=== PATIENT | female | born 1960 | race Two or more races ===

== ENCOUNTER 2021-10-14 11:59 | Inpatient (IN) | payer BC, MEDICAID ==
[~2021-10-14] VITALS: Ht 157.5 cm; Wt 65.8 kg
[~2021-10-14 11:59] MED LIST: IBUP600T27 PO; METF-489 PO
[2021-10-14] MEDS ORDERED: SODIUM CHLORIDE 0.9% 1,000 ML IV ONE (12:30)
[2021-10-14] MEDS ORDERED: InsuLIN REG 1unit/0.01ml Soln (100units/ml) IV ONE (12:30)
[2021-10-14 14:25] LABS: Basophils # (auto) 0.1 10 ^3/uL (0-0.2); Eosinophils # (auto) 0.1 10 ^3/uL (0-0.8); Eosinophils % (auto) 3.1 % (0.0-7.0); Hematocrit 43.3 % (36.0-46.0); Hemoglobin 14.7 g/dL (12.2-16.2); Lymphocytes # (auto) 0.8 10 ^3/uL (0.4-5.4); Mean Corpuscular Hemoglobin 31.8 pg (28.0-32.0); Mean Corpuscular Hgb Conc. 33.9 g/dL (32.0-36.0); Mean Corpuscular Volume 93.7 fL (80.0-100.0); Monocytes # (auto) 0.2 10 ^3/uL (0-1.3); Neutrophils # (auto) 3.3 10 ^3/uL (1.6-8.6); Neutrophils % (auto) 71.9 % (37.0-80.0); Nucleated Red Blood Cells % 0.1 %; Red Blood Cells 4.62 10^6/uL (4.0-5.20); Red Cell Distribution Width 13.3 % (11.8-14.3); White Blood Cell 4.6 10^3/uL (4.4-10.8)
[2021-10-14 14:41] LABS: Albumin 3.9 g/dL (3.4-5.0); Calcium 10.1 mg/dL (8.5-10.1); Potassium 4.7 mmol/L (3.5-5.1)
[2021-10-14 14:46] LABS: BUN/Creatinine Ratio 31.3; Bilirubin, Total 0.4 mg/dL (0.2-1.0); Total Protein 7.8 g/dL (6.4-8.2)
[2021-10-14 14:57] LABS: Urine Bacteria NONE SEEN /hpf (None Seen); Urine Blood Negative /uL (Negative); Urine Specific Gravity 1.031 (1.001-1.035); Urine WBC 1 /hpf (0 - 5)
[2021-10-14] MEDS ORDERED: NITROGLYCERIN 0.4 MG SL TAB SL PRN ×2 (16:00→17:45)
[2021-10-14] MEDS ORDERED: DEXTROSE (50%) 50ML SYRG IV PRN (16:00)
[2021-10-14] MEDS ORDERED: SODIUM CHLORIDE 0.9% 3,000 ML IV ONE (16:00)
[2021-10-14] MEDS ORDERED: InsuLIN R (HUMAN) 100 UNITS in SODIUM CHL 0.9% 99 ML IV SCH (16:00)
[2021-10-14] MEDS ORDERED: MORPHINE SULFATE INJECTION 2 MG/ML SYRG IV PRN ×3 (16:00→17:45)
[2021-10-14] MEDS ORDERED: INSULIN LANTUS (GLARGINE) 1 /0.01ml (100units/ml) SC ONE (16:00)
[2021-10-14] MEDS: ACCU-CHEK COMFORT CURVE STRIP VI SCH ×5 (16:35→22:33)
[2021-10-14 17:06] LABS: Calcium 9.5 mg/dL (8.5-10.1); Magnesium 2.5 mg/dL (1.6-2.6); Potassium 4.1 mmol/L (3.5-5.1)
[2021-10-14 17:09] LABS: BUN/Creatinine Ratio 34.3; Phosphorus 3.7 mg/dL (2.5-4.90)
[2021-10-14] MEDS ORDERED: ONDANSETRON HCL 4 MG/2 ML VIAL ONE (17:15)
[2021-10-14] MEDS ORDERED: PANTOPRAZOLE 40 MG/10 ML VIAL INJ IV ONE (17:30)
[2021-10-14] MEDS ORDERED: SOD CHL 0.9%/ KCL 20MEQ 1,000 ML IV PRN (17:30)
[2021-10-14] MEDS ORDERED: cefTRIAXone 1GM/50ML D5W 50 ML IV ONE (17:30)
[2021-10-14] MEDS ORDERED: D5W/SOD CHLO 0.9% 1,000 ML IV PRN (17:30)
[2021-10-14] MEDS ORDERED: HYDROcodone-ACET 5/325MG TAB PO PRN (17:45)
[2021-10-14] MEDS ORDERED: ACETAMINOPHEN 325 MG TAB PO PRN (17:45)
[2021-10-14] MEDS ORDERED: ALBUTEROL SULF 2.5 MG/0.5ML(0.5%) NEB SOLN NEB PRN (17:45)
[2021-10-14] MEDS ORDERED: BUDESONIDE (INHALATION) 0.5 MG/2 ML NEB NEB ONE (17:45)
[2021-10-14] MEDS ORDERED: DOCUSATE SOD 100 MG CAP PO PRN (17:45)
[2021-10-14] MEDS ORDERED: METOCLOPRAMIDE HCL 5MG/ml INJ 2ml VIAL IV PRN (17:45)
[2021-10-14] MEDS ORDERED: LORazepam 0.5 MG TAB PO PRN (17:45)
[2021-10-14] MEDS ORDERED: ALUM & MAG HYDROX-SIMETH LIQ(MAALOX) 30 ML PO PRN (17:45)
[2021-10-14] MEDS ORDERED: IPRATROPIUM BROM 0.5 MG/2.5ML INH SOL NEB SCH (18:00)
[2021-10-14 18:06] LABS: Cholesterol 193 mg/dL (< 200)
[2021-10-14 18:09] LABS: HDL Cholesterol 31 mg/dL (40-59); Triglycerides 534 mg/dL (< 150)
[2021-10-14 18:11] LABS: Amphetamine Screen, Urine NEGATIVE (NEGATIVE); Barbiturate Scree,Urine NEGATIVE (NEGATIVE); Benzodiazephine Screen, Urine NEGATIVE (NEGATIVE); Cannabinoid Screen, Urine NEGATIVE (NEGATIVE); Cocaine Screen, Urine NEGATIVE (NEGATIVE); Opiate Scree,Urine NEGATIVE (NEGATIVE); Phencyclidine Screen, Urine NEGATIVE (NEGATIVE)
[2021-10-14] MEDS: SODIUM CHLORIDE 0.9% 1,000 ML IV SCH ×2 (18:35→22:33)
[2021-10-14] MEDS ORDERED: ATORVASTATIN 20 MG TAB PO SCH (22:00)
[2021-10-14] MEDS ORDERED: MONTELUKAST SODIUM 10 MG TAB PO SCH (22:00)
[2021-10-15] MEDS: ACCU-CHEK COMFORT CURVE STRIP VI SCH ×12 (00:06→16:33)
[2021-10-15] MEDS: SODIUM CHLORIDE 0.9% 1,000 ML IV SCH ×3 (03:31→13:30)
[2021-10-15] MEDS ORDERED: LEVOTHYROXINE SODIUM 25 MCG TAB PO SCH (07:00)
[2021-10-15] MEDS ORDERED: cefTRIAXone 1GM/50ML D5W 50 ML IV SCH (09:00)
[2021-10-15] MEDS ORDERED: BUDESONIDE (INHALATION) 0.5 MG/2 ML NEB NEB SCH (10:00)
[2021-10-15] MEDS ORDERED: ENOXAPARIN SOD 40 MG/0.4 ML SYRINGE SC SCH (10:00)
[2021-10-15] MEDS ORDERED: INSULIN LANTUS (GLARGINE) 1 /0.01ml (100units/ml) SC SCH (10:00)
[2021-10-15] MEDS ORDERED: ASPirin 81 mg TAB PO SCH (10:00)
[2021-10-15] MEDS ORDERED: BENAZEPRIL HCL 10 MG TAB PO SCH (10:00)
[2021-10-15] MEDS ORDERED: METF-372 PO (16:10)
[2021-10-15] MEDS ORDERED: ATOR20TA50 PO (16:10)
[2021-10-15] MEDS ORDERED: LOS25T PO (16:10)
[2021-10-15] MEDS ORDERED: ASPI1CHW15 PO ×2 (16:12)
[2021-10-15] MEDS ORDERED: LEV50T PO (16:14)
[2021-10-15] MEDS ORDERED: DEXTROSE (50%) 50ML SYRG IV PRN (16:15)
[2021-10-15] MEDS ORDERED: ALCO1PAD13 XX (16:21)
[2021-10-15] MEDS ORDERED: LANCMIS XX (16:21)
[2021-10-15] MEDS ORDERED: INSREGI SC (16:21)
[2021-10-15] MEDS ORDERED: BLOOKIT79 XX (16:21)
[2021-10-15] MEDS ORDERED: INSU-829 XX (16:21)
[2021-10-15 16:41] VITALS: BP 104/53
[2021-10-15] MEDS ORDERED: ACCU-CHEK COMFORT CURVE STRIP VI SCH (18:00)
[2021-10-15] MEDS ORDERED: InsuLIN REG 1unit/0.01ml Soln (100units/ml) SC SCH (18:00)
[2021-10-15] MEDS ORDERED: PANTOPRAZOLE 40 MG/10 ML VIAL INJ IV SCH (22:00)
== END 2021-10-15 17:34 | disposition home or self-care (01) | DRG 638 ==
LOC: ER 11:59 → EEVIPCON 15:53 → TELE 15:53
PROVIDERS: ADMIT Hospitalist; ATTEND Internal Medicine
DX: E11.65 Type 2 diabetes mellitus with hyperglycemia (principal); N39.0 Urinary tract infection, site not specified; E03.9 Hypothyroidism, unspecified; E78.5 Hyperlipidemia, unspecified; E66.01 Morbid (severe) obesity due to excess calories; I10 Essential (primary) hypertension; J45.40 Moderate persistent asthma, uncomplicated; Z68.26 Body mass index [BMI] 26.0-26.9, adult; Z79.84 Long term (current) use of oral hypoglycemic drugs; Z81.8 Family history of other mental and behavioral disorders; Z86.73 Personal history of transient ischemic attack (TIA), and cerebral infarction without residual deficits; Z91.14 Patient's other noncompliance with medication regimen; Z91.19 Patient's noncompliance with other medical treatment and regimen
CPT/HCPCS: 36415; 71045; 80048; 80053; 80061; 80307; 81001; 82010; 82962; 83036; 83735; 83930; 84100; 84484; 85025; 87040; 87086; 87426; 93005; 96361; 96374; C9113; G0378; J0696; J1815; J2405

== ENCOUNTER 2023-08-07 17:16 | Inpatient (IN) | payer BC, MEDICAID ==
[~2023-08-07] VITALS: Ht 149.9 cm; Wt 76.3 kg
[~2023-08-07 17:16] MED LIST changes: +ALCO1PAD13 XX; +ASPI-736 PO; +ATOR20TA50 PO; +BLOOKIT79 XX; -IBUP600T27 PO; +INSREGI SC; +INSU-829 XX; +LANCMIS XX; +LEV50T PO; +LOS25T PO; +METF-372 PO; -METF-489 PO
[2023-08-07] MEDS ORDERED: IPRATROPIUM BROM 0.5 MG/2.5ML INH SOL NEB ONE (18:15)
[2023-08-07] MEDS ORDERED: ALBUTEROL SULF 2.5 MG/0.5ML(0.5%) NEB SOLN NEB ONE (18:15)
[2023-08-07 19:01] LABS: Hematocrit 44.8 % (36.0-46.0); Hemoglobin 14.9 g/dL (12.2-16.2); Mean Corpuscular Hgb Conc. 33.2 g/dL (32.0-36.0); Mean Corpuscular Volume 90.4 fL (80.0-100.0); Red Blood Cells 4.96 10^6/uL (4.0-5.20); White Blood Cell 7.2 10^3/uL (4.4-10.8)
[2023-08-07 19:15] LABS: Band Neutrophils % (manual) 0; Basophils % (manual) 0 (0.0-2.0); Blast Cells 0; Metamyelocytes % 0; Myelocytes % 0; Promyelocytes % 0; Reactive Lymphocytes 0
[2023-08-07 19:20] LABS: Alanine Aminotransferase 30 U/L (7-40); Albumin 4.6 g/dL (3.2-4.8); Alkaline Phosphatase 136 U/L (46-116); Anion Gap 8 (5-15); Aspartate Aminotransferase 32 U/L (13-40); BUN/Creatinine Ratio 17.2 (10.0-20.0); Bilirubin, Total 0.3 mg/dL (0.2-1.0); Blood Urea Nitrogen 11 mg/dL (9-23); Calcium 10.1 mg/dL (8.7-10.4); Carbon Dioxide 25 mmol/L (20-30); Chloride 105 mmol/L (98-107); Glucose 182 mg/dL (74-106); Potassium 4.1 mmol/L (3.5-5.1); Sodium 138 mmol/L (136-145); Total Protein 8.4 g/dL (5.7-8.2)
[2023-08-07 19:28] LABS: Eosinophils % (manual) 17 (0-7); Lymphocytes % (manual) 41 (10.0-50.0); Monocytes % (manual) 10 (0-12); Platelet Estimate Adequate
[2023-08-07 19:29] LABS: RBC Morphology Normal
[2023-08-07 19:39] LABS: Urine Bacteria NONE SEEN /hpf (None Seen); Urine Blood Negative /uL (Negative); Urine Clarity Clear (Clear); Urine Color Colorless (Yellow); Urine Protein, UAD Negative (Negative); Urine Specific Gravity 1.002 (1.001-1.035); Urine Urobilinogen Normal (Negative); Urine WBC <1 /hpf (0 - 5); Urine pH 5.5 (5.0-8.0)
[2023-08-07] MEDS ORDERED: IPRATROPIUM BROM 0.5 MG/2.5ML INH SOL ONE (20:53)
[2023-08-07] MEDS ORDERED: ALBUTEROL MEDNEB 2.5 mg/3ml NEB ONE (20:53)
[2023-08-07] MEDS ORDERED: predniSONE 20 MG TAB PO ONE (21:00)
[2023-08-07 21:57] LABS: Basophils # (auto) 0 10 ^3/uL (0-0.2); Basophils % (auto) 0.5 % (0.0-2.0); Eosinophils # (auto) 0.9 10 ^3/uL (0-0.8); Eosinophils % (auto) 12.4 % (0.0-7.0); Hematocrit 43.1 % (36.0-46.0); Hemoglobin 14.5 g/dL (12.2-16.2); Lymphocytes # (auto) 3.8 10 ^3/uL (0.4-5.4); Mean Corpuscular Hemoglobin 30.5 pg (28.0-32.0); Mean Corpuscular Hgb Conc. 33.6 g/dL (32.0-36.0); Mean Corpuscular Volume 90.7 fL (80.0-100.0); Monocytes # (auto) 0.5 10 ^3/uL (0-1.3); Monocytes % (auto) 6.8 % (0.0-12.0); Neutrophils # (auto) 2.2 10 ^3/uL (1.6-8.6); Neutrophils % (auto) 29.3 % (37.0-80.0); Nucleated Red Blood Cells % 0.1 %; Red Blood Cells 4.75 10^6/uL (4.0-5.20); Red Cell Distribution Width 14.1 % (11.8-14.3); White Blood Cell 7.4 10^3/uL (4.4-10.8)
[2023-08-07 22:21] LABS: Alanine Aminotransferase 32 U/L (7-40); Albumin 4.7 g/dL (3.2-4.8); Alkaline Phosphatase 132 U/L (46-116); Anion Gap 9 (5-15); Aspartate Aminotransferase 32 U/L (13-40); BUN/Creatinine Ratio 16.9 (10.0-20.0); Bilirubin, Total 0.3 mg/dL (0.2-1.0); Blood Urea Nitrogen 12 mg/dL (9-23); Calcium 9.9 mg/dL (8.7-10.4); Carbon Dioxide 26 mmol/L (20-30); Chloride 103 mmol/L (98-107); Glucose 239 mg/dL (74-106); Lactic Acid w/Reflex 3.2 mmol/L (0.4-2.0); Potassium 3.3 mmol/L (3.5-5.1); Sodium 138 mmol/L (136-145); Total Protein 8.4 g/dL (5.7-8.2)
[2023-08-07 22:21] LABS: Base Excess -1.8 mmol/L (-2.0-2.0)
[2023-08-07 23:19] VITALS: PULSE 75; RESP 20; O2SAT 96
[2023-08-08] VITALS (8 sets, daily range): BP systolic 97–134; BP diastolic 40–56; PULSE 64–75; RESP 14–20; TEMP 97.5–98.4; O2SAT 95–100
[2023-08-08 01:17] LABS: COVID19 ANTIGEN SOFIA FIA NEGATIVE (NEGATIVE); Rapid Influenza A Negative (Negative); Rapid Influenza B Negative (Negative)
[2023-08-08] MEDS ORDERED: NITROGLYCERIN 0.4 MG SL TAB SL PRN (01:30)
[2023-08-08] MEDS ORDERED: ACETAMINOPHEN 325 MG TAB PO PRN (01:30)
[2023-08-08] MEDS ORDERED: DEXTROSE (50%) 50ML SYRG IV PRN (01:30)
[2023-08-08] MEDS ORDERED: ONDANSETRON HCL 4 MG/2 ML VIAL IV PRN (01:30)
[2023-08-08] MEDS ORDERED: MORPHINE SULFATE INJ 2 MG/ml SYRG IV PRN (01:30)
[2023-08-08] MEDS: cefTRIAXone 1GM/50ML D5W 50 ML IV SCH ×2 (01:48→21:34)
[2023-08-08] MEDS: ACCU-CHEK COMFORT CURVE STRIP VI SCH ×4 (06:38→21:34)
[2023-08-08] MEDS: LEVOTHYROXINE SODIUM 25 MCG TAB PO SCH (06:43)
[2023-08-08] MEDS: InsuLIN REG 1unit/0.01ml Soln (100units/ml) SC SCH ×4 (06:51→21:34)
[2023-08-08] MEDS ORDERED: ALBUTEROL MEDNEB 2.5 mg/3ml NEB ONE (09:38)
[2023-08-08] MEDS: ALBUTEROL SULF 2.5 MG/0.5ML(0.5%) NEB SOLN NEB PRN (09:43)
[2023-08-08] MEDS: ASPirin 81 mg TAB PO SCH (09:46)
[2023-08-08] MEDS: LOSARTAN POTASSIUM 25 MG TAB PO SCH (09:46)
[2023-08-08] MEDS ORDERED: AZITHROMYCIN 500MG/ 250ML 250 ML IV ONE (15:00)
[2023-08-08] MEDS ORDERED: ATOR10TA52 PO (16:48)
[2023-08-08] MEDS ORDERED: LEVO25TA6 PO (16:49)
[2023-08-08] MEDS ORDERED: EMPA1TAB3 PO (16:51)
[2023-08-08] MEDS ORDERED: IBUP-1456 PO (16:53)
[2023-08-08] MEDS ORDERED: HYDRX10T PO (16:54)
[2023-08-08] MEDS ORDERED: ATORVASTATIN 20 MG TAB PO SCH (22:00)
[2023-08-09] VITALS (7 sets, daily range): BP systolic 111–126; BP diastolic 52–60; PULSE 60–63; RESP 14–21; TEMP 97.9–98.6; O2SAT 94–100
[2023-08-09 05:59] LABS: Basophils # (auto) 0 10 ^3/uL (0-0.2); Basophils % (auto) 0.5 % (0.0-2.0); Eosinophils # (auto) 0.9 10 ^3/uL (0-0.8); Eosinophils % (auto) 12.7 % (0.0-7.0); Hematocrit 42.5 % (36.0-46.0); Hemoglobin 14.6 g/dL (12.2-16.2); Lymphocytes # (auto) 3.8 10 ^3/uL (0.4-5.4); Lymphocytes % (auto) 52.3 % (10.0-50.0); Mean Corpuscular Hemoglobin 31.1 pg (28.0-32.0); Mean Corpuscular Hgb Conc. 34.3 g/dL (32.0-36.0); Mean Corpuscular Volume 90.7 fL (80.0-100.0); Monocytes # (auto) 0.6 10 ^3/uL (0-1.3); Monocytes % (auto) 8.2 % (0.0-12.0); Neutrophils # (auto) 1.9 10 ^3/uL (1.6-8.6); Neutrophils % (auto) 26.3 % (37.0-80.0); Nucleated Red Blood Cells % 0.1 %; Red Blood Cells 4.68 10^6/uL (4.0-5.20); Red Cell Distribution Width 14.2 % (11.8-14.3); White Blood Cell 7.3 10^3/uL (4.4-10.8)
[2023-08-09 06:16] LABS: Alanine Aminotransferase 27 U/L (7-40); Albumin 4.3 g/dL (3.2-4.8); Alkaline Phosphatase 108 U/L (46-116); Anion Gap 6 (5-15); Aspartate Aminotransferase 39 U/L (13-40); BUN/Creatinine Ratio 18.8 (10.0-20.0); Bilirubin, Total 0.5 mg/dL (0.2-1.0); Blood Urea Nitrogen 13 mg/dL (9-23); Calcium 9.5 mg/dL (8.5-10.1); Carbon Dioxide 26 mmol/L (20-30); Chloride 105 mmol/L (98-107); Glucose 200 mg/dL (74-106); Potassium 4.2 mmol/L (3.5-5.1); Sodium 137 mmol/L (136-145); Total Protein 7.7 g/dL (5.7-8.2)
[2023-08-09] MEDS: ACCU-CHEK COMFORT CURVE STRIP VI SCH ×2 (06:41→12:28)
[2023-08-09] MEDS: guaiFENesin-DM 100/10mg/5ml SYR PO PRN ×2 (06:41→12:33)
[2023-08-09] MEDS: LEVOTHYROXINE SODIUM 25 MCG TAB PO SCH (06:41)
[2023-08-09] MEDS: InsuLIN REG 1unit/0.01ml Soln (100units/ml) SC SCH ×2 (06:47→12:28)
[2023-08-09] MEDS ORDERED: AZITHROMYCIN 500MG/ 250ML 250 ML IV SCH (10:00)
[2023-08-09] MEDS: LOSARTAN POTASSIUM 25 MG TAB PO SCH (10:17)
[2023-08-09] MEDS: ASPirin 81 mg TAB PO SCH (10:17)
[2023-08-09] MEDS ORDERED: ALBUTEROL MEDNEB 2.5 mg/3ml NEB ONE (10:31)
[2023-08-09] MEDS: ALBUTEROL SULF 2.5 MG/0.5ML(0.5%) NEB SOLN NEB PRN ×2 (10:37→10:43)
[2023-08-09] MEDS ORDERED: DOXY-448 PO (13:37)
[2023-08-10 10:59] LABS: Hepatitis B Surface Antigen Negative (Negative)
[2023-08-10 13:23] LABS: Hepatitis C Antibody Negative (Negative)
== END 2023-08-09 15:01 | disposition home or self-care (01) | DRG 137 ==
LOC: ER 17:16 → EEVIPCON 17:16 → OVERFLOW 08-08 01:28 → CENTRAL 08-08 16:14
PROVIDERS: ADMIT Nurse Practitioner; ATTEND Internal Medicine Pulmonary Disease
DX: J15.69 Pneumonia due to other Gram-negative bacteria (principal); E07.9 Disorder of thyroid, unspecified; E11.65 Type 2 diabetes mellitus with hyperglycemia; R06.03 Acute respiratory distress; E66.9 Obesity, unspecified; Z20.822 Contact with and (suspected) exposure to COVID-19; J45.909 Unspecified asthma, uncomplicated; E78.5 Hyperlipidemia, unspecified; Z68.34 Body mass index [BMI] 34.0-34.9, adult; J15.9 Unspecified bacterial pneumonia
CPT/HCPCS: 36415; 36600; 71046; 71250; 80053; 81001; 82805; 82962; 83605; 83735; 83880; 84484; 85007; 85025; 85027; 86803; 87040; 87340; 87426; 87804; 93005; 94640; G0378; J0696; J1815

== ENCOUNTER 2024-05-03 12:45 | Inpatient (IN) | payer MEDICAID ==
[~2024-05-03] VITALS: Ht 149.9 cm; Wt 72.1 kg
[~2024-05-03 12:45] MED LIST changes: -ALCO1PAD13 XX; -ASPI-736 PO; +ATOR10TA52 PO; -ATOR20TA50 PO; -BLOOKIT79 XX; +DOXY-448 PO; +EMPA1TAB3 PO; +HYDRX10T PO; +IBUP-1456 PO; -INSREGI SC; -INSU-829 XX; -LANCMIS XX; -LOS25T PO
[2024-05-03 13:42] LABS: Basophils # (auto) 0 10 ^3/uL (0-0.2); Basophils % (auto) 0.5 % (0.0-2.0); Eosinophils # (auto) 0.3 10 ^3/uL (0-0.8); Eosinophils % (auto) 7.8 % (0.0-7.0); Hematocrit 43.1 % (36.0-46.0); Hemoglobin 14.7 g/dL (12.2-16.2); Lymphocytes # (auto) 2.2 10 ^3/uL (0.4-5.4); Lymphocytes % (auto) 52.1 % (10.0-50.0); Mean Corpuscular Hemoglobin 31.7 pg (28.0-32.0); Mean Corpuscular Hgb Conc. 34.2 g/dL (32.0-36.0); Monocytes # (auto) 0.4 10 ^3/uL (0-1.3); Monocytes % (auto) 9.2 % (0.0-12.0); Neutrophils # (auto) 1.3 10 ^3/uL (1.6-8.6); Neutrophils % (auto) 30.4 % (37.0-80.0); Nucleated Red Blood Cells % 0.1 %; Red Blood Cells 4.64 10^6/uL (4.0-5.20); Red Cell Distribution Width 13.5 % (11.8-14.3); White Blood Cell 4.2 10^3/uL (4.4-10.8)
[2024-05-03 13:59] LABS: Alanine Aminotransferase 29 U/L (7-40); Albumin 4.4 g/dL (3.2-4.8); Alkaline Phosphatase 92 U/L (46-116); Anion Gap 6 (5-15); Aspartate Aminotransferase 27 U/L (13-40); BUN/Creatinine Ratio 20.6 (10.0-20.0); Blood Urea Nitrogen 14 mg/dL (9-23); Calcium 10.3 mg/dL (8.7-10.4); Carbon Dioxide 28 mmol/L (20-30); Chloride 107 mmol/L (98-107); Glucose 149 mg/dL (74-106); Potassium 4.5 mmol/L (3.5-5.1); Sodium 141 mmol/L (136-145)
[2024-05-03 14:00] LABS: Bilirubin, Total 0.4 mg/dL (0.2-1.0)
[2024-05-03] MEDS ORDERED: DEXTROSE (50%) 50ML SYRG IV PRN (17:30)
[2024-05-03] MEDS ORDERED: MORPHINE SULFATE INJ 2 MG/ml SYRG IV PRN (17:30)
[2024-05-03] MEDS ORDERED: NITROGLYCERIN 0.4 MG SL TAB SL PRN (17:30)
[2024-05-03 18:16] VITALS: PULSE 57; RESP 16; O2SAT 96
[2024-05-03] MEDS: ACCU-CHEK COMFORT CURVE STRIP VI SCH (18:42)
[2024-05-03] MEDS: InsuLIN REG 1unit/0.01ml Soln (100units/ml) SC SCH (18:52)
[2024-05-03 18:54] VITALS: BP 123/53; PULSE 56; RESP 18; TEMP 97.5; O2SAT 99
[2024-05-03 19:24] LABS: Magnesium 1.8 mg/dL (1.6-2.6)
[2024-05-03 19:26] LABS: Phosphorus 3.5 mg/dL (2.4-5.1)
[2024-05-03 19:36] LABS: INR 0.99 (0.9-1.15); Prothrombin Time 10.5 sec (9.3-11.8)
[2024-05-03 20:00] VITALS: PULSE 61; O2SAT 97
[2024-05-03] MEDS: HYDROcodone-ACET 5/325MG TAB PO PRN (20:07)
[2024-05-03] MEDS: ATORVASTATIN 20 MG TAB PO SCH (21:53)
[2024-05-03 22:16] VITALS: BP 110/55; PULSE 61; RESP 19; TEMP 97.7; O2SAT 97
[2024-05-04] VITALS (9 sets, daily range): BP systolic 115–138; BP diastolic 52–76; PULSE 60–68; RESP 16–18; TEMP 97.8–98.5; O2SAT 95–98
[2024-05-04 06:09] LABS: Triglycerides 148 mg/dL (< 150)
[2024-05-04 06:10] LABS: LDL Cholesterol 62 mg/dL (< 100)
[2024-05-04 06:11] LABS: Cholesterol 123 mg/dL (< 200); HDL Cholesterol 42 mg/dL (40-59)
[2024-05-04] MEDS: LEVOTHYROXINE SODIUM 25 MCG TAB PO SCH (06:24)
[2024-05-04 06:57] LABS: Urine Bacteria None Seen /hpf (None Seen)
[2024-05-04 07:19] LABS: Urine Blood Negative /uL (Negative); Urine Clarity Clear (Clear); Urine Color Light-Yellow (Yellow); Urine Protein, UAD Negative (Negative); Urine Specific Gravity 1.013 (1.001-1.035); Urine Urobilinogen Normal (Negative); Urine WBC 3 /hpf (0 - 5)
[2024-05-04] MEDS ORDERED: PATIENTS OWN MEDICATION (Atorvastatin Calcium 10 MG) PO SCH (10:00)
[2024-05-04] MEDS: CLOPIDOGREL BISULFATE 75 MG TAB PO SCH (11:54)
[2024-05-04] MEDS: ASPirin 81 mg TAB PO SCH (11:55)
[2024-05-04] MEDS: IOHEXOL 350 MG/ML 100ML IJ ONE (11:55)
[2024-05-04] MEDS: InsuLIN REG 1unit/0.01ml Soln (100units/ml) SC SCH ×2 (17:17→21:26)
[2024-05-04] MEDS: ACCU-CHEK COMFORT CURVE STRIP VI SCH (17:20)
[2024-05-05] VITALS (8 sets, daily range): BP systolic 104–141; BP diastolic 40–70; PULSE 56–69; RESP 18–20; TEMP 97.6–98.2; O2SAT 97–99
[2024-05-05] MEDS: ENOXAPARIN SOD 40 MG/0.4 ML SYRINGE SC SCH (08:24)
[2024-05-06] VITALS (7 sets, daily range): BP systolic 98–141; BP diastolic 50–78; PULSE 63–76; RESP 17–18; TEMP 97.6–98.3; O2SAT 67–100
[2024-05-06] MEDS: ADENOSINE 61 MG in GIVE UN-DILUTED 0 ML IV STA (09:39)
[2024-05-06] MEDS ORDERED: IOHEXOL 300 MG/ML 100ML BOTTLE IJ ONE (20:16)
== END 2024-05-06 18:15 | disposition home or self-care (01) | DRG 203 ==
LOC: ER 12:45 → OVERFLOW 17:32 → WEST WING 18:47 → TELE-WESTW 05-04 16:07
PROVIDERS: ADMIT Nurse Practitioner Family; ATTEND Internal Medicine
DX: M94.0 Chondrocostal junction syndrome [Tietze] (principal); E03.9 Hypothyroidism, unspecified; E11.65 Type 2 diabetes mellitus with hyperglycemia; J45.909 Unspecified asthma, uncomplicated; R00.1 Bradycardia, unspecified; E66.9 Obesity, unspecified; E78.5 Hyperlipidemia, unspecified; Z98.51 Tubal ligation status; Z81.8 Family history of other mental and behavioral disorders; Z68.32 Body mass index [BMI] 32.0-32.9, adult; Z86.73 Personal history of transient ischemic attack (TIA), and cerebral infarction without residual deficits; I16.0 Hypertensive urgency
CPT/HCPCS: 36415; 70450; 70496; 70551; 71045; 73030; 78452; 80053; 80061; 81001; 82962; 83735; 84100; 84443; 84484; 85025; 85610; 93005; 93017; 93306; 93886; 97110; 97163; 97530; G0378; J0153; J1815

== ENCOUNTER 2025-03-15 15:38 | Inpatient (IN) | payer MEDICAID ==
[~2025-03-15] VITALS: Ht 142.2 cm; Wt 77.2 kg
[~2025-03-15 15:38] MED LIST changes: -DOXY-448 PO; -LEV50T PO; +LEVO-848 PO
[2025-03-15 16:29] LABS: Urine Bacteria None Seen /hpf (None Seen)
[2025-03-15 16:36] LABS: Urine Blood Negative /uL (Negative); Urine Clarity Clear (Clear); Urine Color Light-Yellow (Yellow); Urine Protein, UAD Negative (Negative); Urine Specific Gravity 1.027 (1.001-1.035); Urine Squamous Epithelial Cell FEW /hpf (<5); Urine Urobilinogen Normal (Negative); Urine WBC 2 /HPF (0-5)
--- NOTE | 2025-03-15 19:04 | DVH ---
CHEST RADIOGRAPH Indication: chest pain Technique: Single frontal view of the chest was obtained Comparison: XY CHEST XRAY 1 VIEW on DOS: 05/03/24, CHEST PORTABLE on DOS: 10/14/21 FINDINGS: Lines and Tubes: None Lungs: No focal consolidation. Pleura: No effusion. No pneumothorax. Cardiomediastinal contours: Unremarkable Bones: No acute osseous abnormality. IMPRESSION: 1. No acute cardiopulmonary disease. 2. No significant change from 08/07/2023
[2025-03-15 19:06] LABS: Basophils # (auto) 0 10 ^3/uL (0-0.2); Basophils % (auto) 0.6 % (0.0-2.0); Chloride 105 mmol/L (98-107); Eosinophils # (auto) 0.2 10 ^3/uL (0-0.8); Eosinophils % (auto) 3.8 % (0.0-7.0); Hematocrit 42.2 % (36.0-46.0); Lymphocytes # (auto) 2.6 10 ^3/uL (0.4-5.4); Lymphocytes % (auto) 52.2 % (10.0-50.0); Mean Corpuscular Hemoglobin 30.6 pg (28.0-32.0); Mean Corpuscular Hgb Conc. 33.1 g/dL (32.0-36.0); Mean Corpuscular Volume 92.2 fL (80.0-100.0); Monocytes # (auto) 0.4 10 ^3/uL (0-1.3); Monocytes % (auto) 8.7 % (0.0-12.0); Neutrophils # (auto) 1.7 10 ^3/uL (1.6-8.6); Neutrophils % (auto) 34.7 % (37.0-80.0); Nucleated Red Blood Cells % 0.2 %; Platelet Count (auto) 224 10^3/uL (140-450); Potassium 4.6 mmol/L (3.5-5.1); Red Blood Cells 4.58 10^6/uL (4.0-5.20); Red Cell Distribution Width 13.5 % (11.8-14.3); Sodium 138 mmol/L (136-145)
[2025-03-15 19:07] LABS: Anion Gap 9 (5-15); Carbon Dioxide 24 mmol/L (20-31)
[2025-03-15 19:12] LABS: BUN/Creatinine Ratio 12.6 (10.0-20.0); Blood Urea Nitrogen 13 mg/dL (9-23)
[2025-03-15 19:13] LABS: Glucose 310 mg/dL (74-106)
--- NOTE | 2025-03-15 20:28 | ED.PDOC ---
HPI Comments 64 year old female came to ER due to chest pains. Patient has history of hypertension and diabetes. Patient just had her stress test yesterday. At about 11 am today, she started having left sided chest pains, pressure, constant, non radiating, 6/10 intensity, associated with headaches. Persistence of chest pains prompted check up.. Blood pressure upon arrival was 130/76 mmHg Chief Complaint: Chest Pain Time Seen by MD: 20:27 Primary Care Provider: KERRY Rico Notes: Nurses Notes Allergies: Coded Allergies: NO KNOWN ALLERGIES (Unverified , 08/21/13) Home Meds Active Scripts Levothyroxine Sodium (SYNTHROID TABLET) 50 Mcg Tb, 75 MCG PO DAILY, #30 MCG Prov:ELOY CAVAZOS MD 10/15/21 Reported Medications Hydroxyzine Hcl (Hydroxyzine Hcl) 10 Mg Tab, 10 MG PO HS PRN for PRN, MG 08/08/23 Ibuprofen (Ibuprofen) 800 Mg Tab, 800 MG PO TID, MG 08/08/23 Empagliflozin (Jardiance) 25 Mg Tab, 25 MG PO, TAB 08/08/23 Atorvastatin Calcium (ATORVASTATIN CALCIUM) 10 Mg Tab, 10 MG PO DAILY, TAB 08/08/23 Metformin Hydrochloride (Metformin Hcl) 1,000 Mg Tab, 1 TAB PO BID, #60 10/15/21 Information Source: Patient Mode of Arrival: Ambulatory Severity: Moderate Timing: Hours Duration: Since onset Prehospital treatment: 12 Lead EKG Location: Chest (L) Radiation: No Radiation Quality: Pressure Onset: At Rest, With Light Exertion Cardiac Risk Factors: Hyperlipidemia, HTN, Diabetes PE Risk Factors: None History of: Similar pain in past Associated Signs and Symptoms: None Past Medical History PAST MEDICAL HISTORY: Asthma, DM, High Lipids, HTN, [place], Thyroid Surgical History: Tubal Ligation SOLID WASTE ENGINEER History: No Pertinent SOLID WASTE ENGINEER History Family History Family History: Reviewed,noncontributory to illness Social History Smoker: Non-Smoker Alcohol: Denies ETOH Use Drugs: Denies Drug Use Lives In: Home Constitutional: denies: chills, diaphoresis, fatigue, fever, malaise, sweats, weakness, others EENTM: denies: blurred vision, double vision, ear bleeding, ear discharge, ear drainage, ear pain, ear ringing, eye pain, eye redness, hearing loss, mouth pain, mouth swelling, nasal discharge, nose bleeding, nose congestion, nose pain, photophobia, tearing, throat pain, throat swelling, voice changes, others Respiratory: denies: cough, hemoptysis, orthopnea, SOB at rest, shortness of breath, SOB with excertion, stridor, wheezing, others Cardiovascular: reports: chest pain; denies: dizzy spells, diaphoresis, Dyspnea on exertion, edema, irregular heart beat, left arm pain, lightheadedness, palpitations, PND, syncope, others Gastrointestinal: denies: abdomen distended, abdominal pain, blood streaked bowels, constipated, diarrhea, dysphagia, difficulty swallowing, hematemesis, melena, nausea, poor appetite, poor fluid intake, rectal bleeding, rectal pain, vomiting, others Genitourinary: denies: abnormal vagina bleeding, burning, dyspareunia, dysuria, flank pain, frequency, hematuria, incontinence, pain, , vagina discharge, urgency, others Neurological: reports: headache; denies: dizziness, fainting, left sided numbness, left sided weakness, numbness, paresthesia, pre-existing deficit, right sided numbness, right sided weakness, seizure, speech problems, tingling, tremors, weakness, others Musculoskeletal: denies: back pain, gout, joint pain, joint swelling, muscle pain, muscle stiffness, neck pain, others Integumetry: denies: bruises, change in color, change in hair/nails, dryness, laceration, lesions, lumps, rash, wounds, others Allergic/Immunocompromised: denies: Difficulty Healing, Frequent Infections, Hives, Itching, others Hematologic/Lymphatic: denies: anemia, blood clots, easy bleeding, easy bruising, swollen glands, others Endocrine: denies: excessive hunger, excessive sweating, excessive thirst, excessive urination, flushing, intolerance to cold, intolerance to heat, unexplained weight gain, unexplained weight loss, others Psychiatric: denies: anxiety, bipolar disorder, depression, hopeless, panic disorder, schizophrenia, sleepless, suicidal, others Physical Exam General Appearance: No Apparent Distress, Normal HEENT: Normal ENT Inspection, Pharynx Normal, TMs Normal Neck: Full Range of Motion, Non-Tender, Normal, Normal Inspection Respiratory: Chest Non-Tender, Lungs Clear, No Accessory Muscle Use, No Respiratory Distress, Normal Breath Sounds Cardiovascular: No Edema, No JVD, No Murmur, No Gallop, Normal Peripheral Pulses, Regular Rate/Rhythm Breast Exam: Deferred Gastrointestinal: No Organomegaly, Non Tender, No Pulsatile Mass, Normal Bowel Sounds, Soft Genitalia: Deferred Pelvic: Deferred Rectal: Deferred Extremities: No calf tenderness, Normal capillary refill, Normal inspection, Normal range of motion, Non-tender, No pedal edema Musculoskeletal : Apperance: Normal Neurologic: Alert, telegraph plant maintainer II-XII nml as Tested, No Motor Deficits, Normal Affect, Normal Mood, No Sensory Deficits Cerebellar Function: Normal Reflexes: Normal Skin: Dry, Normal Color, Warm Lymphatic: No Adenopathy EKG EKG : Pulse Rate (adult): 81 Cardiac Rhythm: NSR Was a procedure done? Was a procedure done?: No CP Differential Dx Differential Diagnosis: Angina, Anxiety / Panic Attack Differential Diagnosis: Angina, Chest Wall Pain, Costochondritis, Esophageal reflux/spasm, Gastritis, Myocardial Infarction X-Ray, Labs, Meds, VS Vital Signs Date Time Temp Pulse Resp B/P (MAP) Pulse Ox O2 Delivery O2 Flow Rate FiO2 03/15/25 15:52 98.0 70 17 136/72 (93) 97 98.0 03/15/25 15:51 61 Lab Test 03/15/25 18:49 03/15/25 16:48 03/15/25 16:14 03/15/25 15:46 Range/Units Troponin I High Sensitivity 5 8 5 </=34 ng/L Urine Color Light-yellow Yellow Urine Clarity Clear Clear Urine pH 6.0 5.0-9.0 Urine Specific [place] 1.027 1.001-1.035 Urine Protein Negative Negative Urine Ketones Negative Negative Urine Blood Negative Negative /uL Urine Nitrite Negative Negative Urine Bilirubin Negative Negative Urine Urobilinogen Normal Negative mg/dL Urine Leukocyte Esterase Negative Negative /uL Urine RBC 1 0 - 4 /hpf Urine Microscopic WBC 2 0-5 /HPF Urine Squamous Epithelial Cells Few <5 /hpf Urine Bacteria None seen None Seen /hpf Urine Glucose 4+ H Normal mg/dL White Blood Count 5.0 4.4-10.8 10^3/uL Red Blood Count 4.58 4.0-5.20 10^6/uL Hemoglobin 14.0 12.2-16.2 g/dL Hematocrit 42.2 36.0-46.0 % Mean Corpuscular Volume 92.2 80.0-100.0 fL Mean Corpuscular Hemoglobin 30.6 28.0-32.0 pg Mean Corpuscular Hemoglobin Concent 33.1 32.0-36.0 g/dL Red Cell Distribution Width 13.5 11.8-14.3 % Platelet Count 224 140-450 10^3/uL Mean Platelet Volume 10.3 6.9-10.8 fL Neutrophils (%) (Auto) 34.7 L 37.0-80.0 % Lymphocytes (%) (Auto) 52.2 H 10.0-50.0 % Monocytes (%) (Auto) 8.7 0.0-12.0 % Eosinophils (%) (Auto) 3.8 0.0-7.0 % Basophils (%) (Auto) 0.6 0.0-2.0 % Neutrophils # (Auto) 1.7 1.6-8.6 10 ^3/uL Lymphocytes # (Auto) 2.6 0.4-5.4 10 ^3/uL Monocytes # (Auto) 0.4 0-1.3 10 ^3/uL Eosinophils # (Auto) 0.2 0-0.8 10 ^3/uL Basophils # (Auto) 0 0-0.2 10 ^3/uL Nucleated Red Blood Cells 0.2 % Sodium Level 138 136-145 mmol/L Potassium Level 4.6 3.5-5.1 mmol/L Chloride Level 105 98-107 mmol/L Carbon Dioxide Level 24 20-31 mmol/L Anion Gap 9 5-15 Blood Urea Nitrogen 13 9-23 mg/dL Creatinine 1.03 H 0.550-1.02 mg/dL Glomerular Filtration Rate Calc 61 >90 mL/min BUN/Creatinine Ratio 12.6 10.0-20.0 Serum Glucose 310 H 74-106 mg/dL Calcium Level 11.0 H 8.7-10.4 mg/dL Time of 1ST Reevaluation: 20:23 Reevaluation 1ST: Unchanged Patient Education/Counseling: Diagnosis, Treatment Family Education/Counseling: No Family Present Departure 1 Departure Time of Disposition: 20:28 (Patient presented with chest pain that was concerning for possible STEMI, ACS, PE, Pneumonia, Muscle Strain, COPD, Dissection. Data: 1. I ordered and reviewed the result of at least 3 labs including a CBC, BMP, and Troponin. 2. I independently interpreted the following tests: EKG which shows sinus arrhythmia and Chest X-ray which shows benign chest.Risk:This patient has a high risk of morbidity due to further diagnostic testing or treatment and may suffer from an acute cardiac or respiratory disorder. Workup reveals concern for ACS and patient should be admitted for further workup and possible expert consultation. ) Impression: Primary Impression: Acute chest pain Disposition: ADMITTED INPATIENT Admit to: Tele Condition: Guarded Critical Care Note Critical Care Time?: Yes Critical care comment: Acute chest pain Authorized and Performed by: Therese Jaquez MD Total critical care time: Approximately 39 minutes Due to a high probability of clinically significant, life threatening deterioration, the patient required my highest level of preparedness to intervene emergently and I personally spent this critical care time directly and personally managing the patient. This critical care time included obtaining a history; examining the patient; pulse oximetry; ordering and review of studies; arranging urgent treatment with development of a management plan; evaluation of patient's response to treatment; frequent reassessment; and, discussions with other providers. This critical care time was performed to assess and manage the high probability of imminent, life-threatening deterioration that could result in multi-organ failure. It was exclusive of separately billable procedures and treating other patients and teaching time. Please see my other sections and the rest of the note for further information on patient assessment and treatment. Stability Stability form required: No Heart Score Heart Score: Heart Score Response (Comments) Value History Moderate Suspicious 1 EKG Normal 0 Age >65 2 Risk Factors 1 or 2 risk factors 1 Troponin Normal limit 0 Total 4 I personally scribed for THERESE JAQUEZ MD ([email or web address]) on 03/15/25 at 20:28. Electronically submitted by Ricky Laws ([email or web address]). THERESE JAQUEZ MD March 15, 2025 20:28
[2025-03-15] MEDS ORDERED: DEXTROSE (50%) 50ML SYRG IV PRN (21:45)
[2025-03-15] MEDS ORDERED: HYDROcodone-ACET 5/325MG TAB PO PRN (21:45)
[2025-03-15] MEDS ORDERED: hydrALAZINE HCL 20 MG/ML VL IV PRN (21:45)
[2025-03-15] MEDS ORDERED: DOCUSATE SOD 100 MG CAP PO PRN (21:45)
[2025-03-15] MEDS ORDERED: ONDANSETRON HCL 4 MG/2 ML VIAL IV PRN (21:45)
--- NOTE | 2025-03-15 23:18 | DVHHP2 ---
History of Present Illness Reason for Visit: Acute chest pain History of Present Illness The patient is a 64-year-old female with past medical history of asthma, DM, hyperlipidemia, ME, hypertension, and hypothyroidism who presented to [facility] ED with complaint of chest pain. Patient reports symptoms progressively get worse with left-sided chest pain, pressure in nature, constant, rating 6/10 numeric scale, associated headaches, getting worse that prompted this visit. Patient was seen and evaluated in the ED, laboratory data shows WBC 5.0, platelets 224, sodium 138, potassium 4.6, BUN 13, creatinine 1.03, glucose 310, calcium 11.0, troponin 8, blood pressure 120/51, heart rate 82, temperature 97.8 F, O2 saturation 96% on room air. Chest x-ray show no acute cardiopulmonary disease. Please see medication orders section in the computer. On my assessment, patient denied chest pain at this moment, no headache, no dizziness, no shortness of breath, no diaphoresis, no nausea, no vomiting, no fever, no chills. Patient was admitted for further evaluation and medical management. Past Medical History Asthma, DM, High Lipids, HTN, ME, Thyroid Past Surgical History Tubal Ligation Family History Reviewed, noncontributory to the management of this case. Past Social History The patient lives at home, denies smoking, alcohol or illicit drugs abuse. Review of Systems Constitutional: Yes: Weakness; No: Fever, Chills, Sweats, Malaise, Other Eyes: No: Pain, Vision change, Conjunctivae inflammation, Eyelid inflammation, Other, Redness ENT: No: Ear pain, Ear discharge, Nose pain, Nose discharge, Nose congestion, Mouth pain, Mouth swelling, Throat pain, Throat swelling, Other Respiratory: No: Cough, Dry, Shortness of breath, SOB with excertion, Wheezing, Hemoptysis, Pleuritic Pain, Sputum, Wheezing, Other Cardiovascular: Chest Pain; No: Palpitations, Orthopnea, Paroxysmal Noc. Dyspnea, Edema, Lt Headedness, Other Gastrointestinal: No: Nausea, Vomiting, Abdominal Pain, Diarrhea, Constipation, Melena, Hematochezia, Other Genitourinary: No Dysuria, No Frequency, No Incontinence, No Hematuria, No Retention, No Other Musculoskeletal: No: other, neck pain, shoulder pain, arm pain, back pain, hand pain, leg pain, foot pain Skin: No: Rash, Lesions, Jaundice, Bruising, Other Neurological: No: Weakness, Numbness, Incoordination, Change in speech, Confusion, Seizures, Other Allergies: Coded Allergies: NO KNOWN ALLERGIES (Unverified , 08/21/13) Medications Current Medications Medications Dose Ordered Sig/Home Route Start Time Stop Time Status Last Admin Dose Admin Atorvastatin Calcium 10 mg HS PO 03/15/25 22:00 Aspirin 81 mg DAILY PO 03/16/25 10:00 Hydralazine HCl 10 mg Q6HP PRN IV 03/15/25 21:45 Levothyroxine Sodium 50 mcg QAM@0600 PO 03/16/25 06:00 Diagnostic Test (Pha) 1 strip ACHS 03/15/25 22:00 Insulin Human Regular HS SC 03/15/25 22:00 Insulin Human Regular AC SC 03/16/25 07:00 Dextrose 50 ml UD PRN IV 03/15/25 21:45 Sodium Chloride 1,000 ml @ 60 mls/hr [id number] IV 03/15/25 21:45 Acetaminophen/ Hydrocodone Bitart 1 tab Q4HP PRN PO 03/15/25 21:45 Ondansetron HCl 4 mg Q4HP PRN IV 03/15/25 21:45 Docusate Sodium 100 mg BIDPRN PRN PO 03/15/25 21:45 Acetaminophen 650 mg Q6HP PRN PO 03/15/25 21:45 Exam Vital Signs Vital Signs Date Time Temp Pulse Resp B/P (MAP) Pulse Ox O2 Delivery O2 Flow Rate FiO2 03/15/25 22:30 97.9 59 18 130/55 (80) 96 97.9 General Appearance: Alert, Oriented X3, Cooperative, No acute distress HEENT: Atraumatic, PERRLA, EOMI, Mucous membr. moist/pink Respiratory: Clear to auscultation, Normal air movement Cardiovascular: Regular rate, Normal S1, Normal S2, No murmurs Abdominal: Normal bowel sounds, Soft, No tenderness, No hepatospenomegaly, No masses Extremities: No clubbing, No cyanosis, No edema, Normal pulses, No tenderness/swelling Skin: No rashes, No breakdown, No significant lesion Neuro: Normal speech, Normal tone, Sensation intact, Cranial nerves 3-12 NL, Reflexes 2+, Other (Generalized weakness) Psych/Mental Status: Mental status NL, Mood NL Labs/Xrays Labs Test 03/15/25 18:49 03/15/25 16:14 03/15/25 15:46 Range/Units Troponin I High Sensitivity 5 </=34 ng/L Urine Color Light-yellow Yellow Urine Clarity Clear Clear Urine pH 6.0 5.0-9.0 Urine Specific [place] 1.027 1.001-1.035 Urine Protein Negative Negative Urine Ketones Negative Negative Urine Blood Negative Negative /uL Urine Nitrite Negative Negative Urine Bilirubin Negative Negative Urine Urobilinogen Normal Negative mg/dL Urine Leukocyte Esterase Negative Negative /uL Urine RBC 1 0 - 4 /hpf Urine Microscopic WBC 2 0-5 /HPF Urine Squamous Epithelial Cells Few <5 /hpf Urine Bacteria None seen None Seen /hpf Urine Glucose 4+ H Normal mg/dL White Blood Count 5.0 4.4-10.8 10^3/uL Red Blood Count 4.58 4.0-5.20 10^6/uL Hemoglobin 14.0 12.2-16.2 g/dL Hematocrit 42.2 36.0-46.0 % Mean Corpuscular Volume 92.2 80.0-100.0 fL Mean Corpuscular Hemoglobin 30.6 28.0-32.0 pg Mean Corpuscular Hemoglobin Concent 33.1 32.0-36.0 g/dL Red Cell Distribution Width 13.5 11.8-14.3 % Platelet Count 224 140-450 10^3/uL Mean Platelet Volume 10.3 6.9-10.8 fL Neutrophils (%) (Auto) 34.7 L 37.0-80.0 % Lymphocytes (%) (Auto) 52.2 H 10.0-50.0 % Monocytes (%) (Auto) 8.7 0.0-12.0 % Eosinophils (%) (Auto) 3.8 0.0-7.0 % Basophils (%) (Auto) 0.6 0.0-2.0 % Neutrophils # (Auto) 1.7 1.6-8.6 10 ^3/uL Lymphocytes # (Auto) 2.6 0.4-5.4 10 ^3/uL Monocytes # (Auto) 0.4 0-1.3 10 ^3/uL Eosinophils # (Auto) 0.2 0-0.8 10 ^3/uL Basophils # (Auto) 0 0-0.2 10 ^3/uL Nucleated Red Blood Cells 0.2 % Sodium Level 138 136-145 mmol/L Potassium Level 4.6 3.5-5.1 mmol/L Chloride Level 105 98-107 mmol/L Carbon Dioxide Level 24 20-31 mmol/L Anion Gap 9 5-15 Blood Urea Nitrogen 13 9-23 mg/dL Creatinine 1.03 H 0.550-1.02 mg/dL Glomerular Filtration Rate Calc 61 >90 mL/min BUN/Creatinine Ratio 12.6 10.0-20.0 Serum Glucose 310 H 74-106 mg/dL Calcium Level 11.0 H 8.7-10.4 mg/dL PATIENT: GARFIELD SHAH ACCT: [id number] UNIT: [id number] : 1960 LOC: ER ROOM / BED: / AGE / SEX: 64 / F ADM STATUS: REG ER SERVICE 38 ORDERING PHYSICIAN: THERESE JAQUEZ MD PROCEDURE(s): CXRP - CHEST PORTABLE REASON: chest pain ORDER NUMBER(s): [id number], ACCESSION NUMBER(s): [id number] CHEST RADIOGRAPH Indication: chest pain Technique: Single frontal view of the chest was obtained Comparison: XY CHEST XRAY 1 VIEW on DOS: 05/03/24, CHEST PORTABLE on DOS: 10/14/21 FINDINGS: Lines and Tubes: None Lungs: No focal consolidation. Pleura: No effusion. No pneumothorax. Cardiomediastinal contours: Unremarkable Bones: No acute osseous abnormality. IMPRESSION: 1. No acute cardiopulmonary disease. 2. No significant change from 08/07/2023 Assessment/Plan Assessment/Plan Acute chest pain Generalized weakness Diabetes mellitus with hyperglycemia Plan 1. Admit to telemetry unit 2. Breathing treatment 3. Pain control management 4. Management of fluids and electrolytes 5. Consultation for hospitalist 6. Diagnostic tests chest x-ray 7. DVT prophylaxis-on aspirin 8. Repeat labs CBC, CMP in a.m. 9. Continue with current medical management 10. Treatment plan discussed with patient and RN. Patient verbalized understanding. Plan discussed with: Patient, Other (RN) My Orders Orders - PARKER DENT DNP Procedure Category Date Status Time Atorvastatin (Lipitor) PHA 03/15/25 In Process 22:00 Aspirin Tablet PHA 03/16/25 In Process 10:00 Hydralazine Injection PHA 03/15/25 In Process (Apresoline Inject 21:45 Consistent DIET 03/16/25 Transmitted Carb(Ccho)Diabetes Breakfast Levothyroxine Tablet PHA 03/16/25 In Process (Synthroid Tablet) 06:00 Glucose Blood PHA 03/15/25 In Process (Accu-Chek Comfort 22:00 Insulin R (Human) PHA 03/15/25 In Process (Insulin R) 22:00 Insulin R (Human) PHA 03/16/25 In Process (Insulin R) 07:00 Dextrose 50% Syringe PHA 03/15/25 In Process 21:45 Allergies LOTTIE 03/15/25 In Process 21:35 Code Status CODE 03/15/25 Transmitted 21:35 Sodium Chloride 0.9% PHA 03/15/25 In Process 21:45 Oxygen Per Hour RT 03/15/25 Transmitted 21:35 Hydrocodone-Acet PHA 03/15/25 In Process 5325mg Tab ([place] 21:45 Ondansetron Hcl PHA 03/15/25 In Process (Zofran) 21:45 Docusate Sodium PHA 03/15/25 In Process Capsule (Colace 21:45 Complete Blood Count LAB 03/16/25 Verified 04:00 Comprehensive LAB 03/16/25 Verified Metabolic Panel 04:00 Condition: Serious LOTTIE 03/15/25 In Process 21:35 Acetaminophen Tablet PHA 03/15/25 In Process (Tylenol Tablet) 21:45 Bedrest With Bathroom LOTTIE 03/15/25 In Process Privileg 21:35 Sequential LOTTIE 03/15/25 In Process Compression Device Admit ADMIT 03/15/25 Transmitted 23:17 Nitroglycerin [facility] 03/15/25 Transmitted Sublingual (Ntrostat 23:30 Morphine Sulfate PHA 03/15/25 Transmitted Injection 23:30 Stat Ekg For Chest LOTTIE 03/15/25 Transmitted Pain 23:17 Notify Of Changes [facility] 03/15/25 Transmitted From Base 23:17 Lesson Instructor For [facility] 03/15/25 Transmitted 24 Hours 23:17 Emergency Dysrhythmia [facility] 03/15/25 Transmitted Protocol 23:17 Rhythm Strips Once LTOTIE 03/15/25 Transmitted Every Shift 23:17 Oxygen By Nasal RT 03/15/25 Transmitted Cannula 23:17 Problem List: (1) Acute chest pain (2) Generalized weakness (3) Diabetes mellitus with hyperglycemia Date of Service: March 15, 2025 Billing Provider: PARKER DENT DNP Common Visit Codes: [id number] INP/OBS CARE (HIGH) PARKER DENT DNP March 15, 2025 23:18
[2025-03-15] MEDS: ACCU-CHEK COMFORT CURVE STRIP VI SCH (23:25)
[2025-03-15] MEDS: SODIUM CHLORIDE 0.9% 1,000 ML IV SCH (23:25)
[2025-03-15] MEDS: ATORVASTATIN 20 MG TAB PO SCH (23:29)
[2025-03-15] MEDS: InsuLIN REG 1unit/0.01ml Soln (100units/ml) SC SCH (23:29)
[2025-03-15] MEDS ORDERED: MORPHINE SULFATE INJ 2 MG/ml SYRG IV PRN (23:30)
[2025-03-15] MEDS ORDERED: NITROGLYCERIN 0.4 MG SL TAB SL PRN (23:30)
[2025-03-16] VITALS (9 sets, daily range): BP systolic 98–119; BP diastolic 51–64; PULSE 51–106; RESP 14–18; TEMP 97.2–98.4; O2SAT 95–98
[2025-03-16] MEDS: ACETAMINOPHEN 325 MG TAB PO PRN (02:04)
[2025-03-16] MEDS: LEVOTHYROXINE SODIUM 50 MCG TAB PO SCH (06:01)
[2025-03-16] MEDS: InsuLIN REG 1unit/0.01ml Soln (100units/ml) SC SCH (06:04)
[2025-03-16 06:17] LABS: Basophils # (auto) 0.1 10 ^3/uL (0-0.2); Basophils % (auto) 1.2 % (0.0-2.0); Eosinophils # (auto) 0.2 10 ^3/uL (0-0.8); Eosinophils % (auto) 3.2 % (0.0-7.0); Hemoglobin 13.6 g/dL (12.2-16.2); Lymphocytes # (auto) 2.7 10 ^3/uL (0.4-5.4); Lymphocytes % (auto) 48.6 % (10.0-50.0); Mean Corpuscular Hemoglobin 31.1 pg (28.0-32.0); Mean Corpuscular Volume 91.7 fL (80.0-100.0); Monocytes # (auto) 0.5 10 ^3/uL (0-1.3); Monocytes % (auto) 8.9 % (0.0-12.0); Neutrophils # (auto) 2.1 10 ^3/uL (1.6-8.6); Neutrophils % (auto) 38.1 % (37.0-80.0); Nucleated Red Blood Cells % 0.1 %; Platelet Count (auto) 220 10^3/uL (140-450); Red Blood Cells 4.36 10^6/uL (4.0-5.20); Red Cell Distribution Width 13.6 % (11.8-14.3); White Blood Cell 5.5 10^3/uL (4.4-10.8)
[2025-03-16 06:34] LABS: Alanine Aminotransferase 31 U/L (7-40); Albumin 4.3 g/dL (3.2-4.8); Alkaline Phosphatase 87 U/L (46-116); Anion Gap 7 (5-15); Aspartate Aminotransferase 23 U/L (13-40); BUN/Creatinine Ratio 21.9 (10.0-20.0); Blood Urea Nitrogen 16 mg/dL (9-23); Carbon Dioxide 25 mmol/L (20-31); Potassium 3.8 mmol/L (3.5-5.1); Sodium 142 mmol/L (136-145)
[2025-03-16 06:35] LABS: Bilirubin, Total 0.4 mg/dL (0.2-1.0)
[2025-03-16 06:40] LABS: Calcium 10.6 mg/dL (8.7-10.4); Chloride 110 mmol/L (98-107); Glucose 221 mg/dL (74-106)
[2025-03-16] MEDS: ASPirin 81 mg TAB PO SCH (09:09)
--- NOTE | 2025-03-16 10:35 | ECG ---
[facility] Test Date: 2025-03-15 Test Time: 15:51:40 Pat Name: GARFIELD SHAH Department: ER Room: [facility]6T A Gender: F Brand Strategy Manager: JUANA : 1960 Requested By: KELECHI QUINONES Order Number: [id number] Reading MD: Rao Alarcon Measurements Intervals [place] Rate: 61 P: 47 OH: 132 QRS: 4 QRSD: 94 T: 48 QT: 397 QTc: 400 Interpretive Statements Sinus rhythm Low voltage, precordial leads RSR' in V1 or V2, right VCD or RVH Electronically Signed On 03-16-2025 22:34:54 PDT by Rao Alarcon Please click the below link to view image of tracing.
--- NOTE | 2025-03-16 12:41 | DVHPN2 ---
Reviewed: Care Plan, H&P, Labs, Medications, Previous Orders, Radiology Changes from previous H/P or p: No Changes Eyes: No Pain, No Vision change, No Conjunctivae inflammation, No Eyelid inflammation, No Other, No Redness ENT: No Ear pain, No Ear discharge, No Nose pain, No Nose discharge, No Nose congestion, No Mouth pain, No Mouth swelling, No Throat pain, No Throat swelling, No Other Cardiovascular: Chest Pain; No Palpitations, No Orthopnea, No Paroxysmal Noc. Dyspnea, No Edema, No Lt Headedness, No Other Respiratory: No Cough, No Dry, No Shortness of breath, No SOB with excertion, No Wheezing, No Hemoptysis, No Pleuritic Pain, No Sputum, No Other Gastrointestinal: No Nausea, No Vomiting, No Abdominal Pain, No Diarrhea, No Constipation, No Melena, No Hematochezia, No Other Genitourinary: No Dysuria, No Frequency, No Incontinence, No Hematuria, No Retention, No Other Musculoskeletal: No other, No neck pain, No shoulder pain, No arm pain, No back pain, No hand pain, No leg pain, No foot pain Skin: No Rash, No Lesions, No Jaundice, No Bruising, No Other Objective Vitals Vital Signs Date Time Temp Pulse Resp B/P (MAP) Pulse Ox O2 Delivery O2 Flow Rate FiO2 03/16/25 09:04 97.6 57 17 109/54 (72) 98 97.6 03/16/25 08:00 Room Air* 0 21 Intake/Output Intake and Output 03/16/25 07:00 Intake Total 250 ml Balance 250 ml Intake Oral 250 ml # Voids 1 Medications Current Medications Medications Dose Ordered Sig/Home Route Start Time Stop Time Status Last Admin Dose Admin Atorvastatin Calcium 10 mg HS PO 03/15/25 22:00 03/15/25 23:29 10 MG Aspirin 81 mg DAILY PO 03/16/25 10:00 03/16/25 09:09 81 MG Hydralazine HCl 10 mg Q6HP PRN IV 03/15/25 21:45 Levothyroxine Sodium 50 mcg QAM@0600 PO 03/16/25 06:00 03/16/25 06:01 50 MCG Diagnostic Test (Pha) 1 strip ACHS 03/15/25 22:00 03/16/25 11:55 1 STRIP Insulin Human Regular HS SC 03/15/25 22:00 03/15/25 23:29 4 UNITS Insulin Human Regular AC SC 03/16/25 07:00 03/16/25 11:55 2 UNITS Dextrose 50 ml UD PRN IV 03/15/25 21:45 Sodium Chloride 1,000 ml @ 60 mls/hr [id number] IV 03/15/25 21:45 03/15/25 23:25 60 MLS/HR Acetaminophen/ Hydrocodone Bitart 1 tab Q4HP PRN PO 03/15/25 21:45 Ondansetron HCl 4 mg Q4HP PRN IV 03/15/25 21:45 Docusate Sodium 100 mg BIDPRN PRN PO 03/15/25 21:45 Acetaminophen 650 mg Q6HP PRN PO 03/15/25 21:45 03/16/25 02:04 650 MG Nitroglycerin 0.4 mg Q5MINP PRN SL 03/15/25 23:30 Morphine Sulfate 2 mg Q30M PRN IV 03/15/25 23:30 Laboratory Results Laboratory Tests 03/16/25 05:23 Chemistry Test 03/15/25 15:46 03/16/25 05:23 Calcium Level 11.0 mg/dL (8.7-10.4) H 10.6 mg/dL (8.7-10.4) H Albumin 4.3 g/dL (3.2-4.8) Total Protein 7.0 g/dL (5.7-8.2) LFT Test 03/16/25 05:23 Alanine Aminotransferase (ALT) 31 U/L (7-40) Alkaline Phosphatase 87 U/L (46-116) Aspartate Amino Transferase (AST) 23 U/L (13-40) Total Bilirubin 0.4 mg/dL (0.2-1.0) Urinalysis Test 03/15/25 16:14 Urine Color Light-yellow (Yellow) Urine Clarity Clear (Clear) Urine pH 6.0 (5.0-9.0) Urine Specific [place] 1.027 (1.001-1.035) Urine Protein Negative (Negative) Urine Ketones Negative (Negative) Urine Blood Negative /uL (Negative) Urine Nitrite Negative (Negative) Urine Bilirubin Negative (Negative) Urine Urobilinogen Normal mg/dL (Negative) Urine Leukocyte Esterase Negative /uL (Negative) Urine RBC 1 /hpf (0 - 4) Urine Microscopic WBC 2 /HPF (0-5) Urine Squamous Epithelial Cells Few /hpf (<5) Urine Bacteria None seen /hpf (None Seen) Urine Glucose 4+ mg/dL (Normal) H Labs and/or images reviewed: Labs reviewed by me, Image(s) reviewed by me Assessment/Plan Assessment/Plan Acute chest pain rule out coronary artery disease: Treatment per ACS protocol, cardiology consult for Dr. Merritt Uncontrolled diabetes: Insulin sliding scale Hypertension Hypercholesterolemia History of [place] Hypothyroidism Asthma Time spent 65 minutes Condition guarded Advanced care planning time 20 minutes Patient is full code Patient's daughter Zeenat ([employer] DATAB[employer] ADMINISTRATOR [facility]) [phone] at bedside and tells me that the patient has had a Cardiolite stress test on Monday by Dr. Merritt in his office. Plan discussed with: Patient My Orders Orders - MIHIR GERONIMO MD Procedure Category Date Status Time Lipid Panel LAB 03/16/25 Transmitted 12:32 Thyroid Stimulating LAB 03/16/25 Transmitted Hormone 12:32 Date of Service: Mar 16, 2025 Billing Provider: MIHIR GERONIMO MD Common Visit Codes: [id number] INP/OBS CARE(HIGH) MIHIR GERONIMO MD Mar 16, 2025 12:41
[2025-03-16 12:57] LABS: Triglycerides 143 mg/dL (< 150)
[2025-03-16 12:58] LABS: LDL Cholesterol 99 mg/dL (< 100)
[2025-03-16 12:59] LABS: Cholesterol 171 mg/dL (< 200); HDL Cholesterol 57 mg/dL (40-59)
--- NOTE | 2025-03-16 15:25 | DVHINCON2 ---
Date Seen: Mar 16, 2025 Referring Physician MD Bijan Reason for Consultation Chest pain with cardiac risk factors History of Present Illness This is a 64-year-old female patient who presents to the emergency room with chief complaint of chest pain that began three days prior to emergency room arrival. The patient describes the pain as unprovoked, intermittent, pressure- like in nature, left-sided and nonradiating. Upon assessment, the pain is reproducible. Associated symptoms include shortness of breath. Initial twelve lead electrocardiogram reveals normal sinus rhythm with RSR pattern in V1 and V2 (comparable to previous EKG from different visit). Serial troponin levels have been negative. Significant past medical history includes hypertension, dyslipidemia, type 2 diabetes mellitus, thyroid disease, asthma, and morbid obesity. The patient sees salesperson corsets in the outpatient setting. She reports undergoing a nuclear stress test two days ago on 03/14/25 in his office. She reports that she is unaware of the results. Past Medical History Past medical history reviewed. No other significant than mentioned above. Past Surgical History Bilateral tubal ligation Family History: Family history: Depression (situation) G8 MOTHER Family History Family history reviewed. Social History Denies the use of tobacco, alcohol or illicit drugs. Allergies: Coded Allergies: NO KNOWN ALLERGIES (Unverified , 08/21/13) Home Meds Active Scripts Levothyroxine Sodium (SYNTHROID TABLET) 50 Mcg Tb, 75 MCG PO DAILY, #30 MCG Prov:ELOY CAVAZOS MD 10/15/21 Reported Medications Hydroxyzine Hcl (Hydroxyzine Hcl) 10 Mg Tab, 10 MG PO HS PRN for PRN, MG 08/08/23 Ibuprofen (Ibuprofen) 800 Mg Tab, 800 MG PO TID, MG 08/08/23 Empagliflozin (Jardiance) 25 Mg Tab, 25 MG PO, TAB 08/08/23 Atorvastatin Calcium (ATORVASTATIN CALCIUM) 10 Mg Tab, 10 MG PO DAILY, TAB 08/08/23 Metformin Hydrochloride (Metformin Hcl) 1,000 Mg Tab, 1 TAB PO BID, #60 10/15/21 Home Meds Home medications reviewed. Current Medications Current Medications Medications (Trade) Dose Ordered Sig/Home Route PRN Reason Start Time Stop Time Status Last Admin Atorvastatin Calcium (Lipitor) 10 mg HS PO 03/15/25 22:00 03/15/25 23:29 Aspirin 81 mg DAILY PO 03/16/25 10:00 03/16/25 09:09 Hydralazine HCl (Apresoline Injection) 10 mg Q6HP PRN IV SBP>150 03/15/25 21:45 Levothyroxine Sodium (Synthroid Tablet) 50 mcg QAM@0600 PO 03/16/25 06:00 03/16/25 06:01 Diagnostic Test (Pha) (Accu-Chek Comfort Curve T) 1 strip ACHS 03/15/25 22:00 03/16/25 11:55 Insulin Human Regular (InsuLIN R) HS SC 03/15/25 22:00 03/15/25 23:29 Insulin Human Regular (InsuLIN R) AC SC 03/16/25 07:00 03/16/25 11:55 Dextrose 50 ml UD PRN IV Blood Sugar LESS THAN 60 03/15/25 21:45 Sodium Chloride 1,000 ml @ 60 mls/hr [id number] IV 03/15/25 21:45 03/15/25 23:25 Acetaminophen/ Hydrocodone Bitart ([place] 5/325MG Tab) 1 tab Q4HP PRN PO MODERATE PAIN (4-6 PAIN SCALE) 03/15/25 21:45 Ondansetron HCl (Zofran) 4 mg Q4HP PRN IV NAUSEA / VOMITING 03/15/25 21:45 Docusate Sodium (Colace Capsule) 100 mg BIDPRN PRN PO FOR CONSTIPATION 03/15/25 21:45 Acetaminophen (Tylenol Tablet) 650 mg Q6HP PRN PO PAIN SCALE 1-3 OR TEMP>100.4 03/15/25 21:45 03/16/25 02:04 Nitroglycerin (Ntrostat Sublingual) 0.4 mg Q5MINP PRN SL FOR CHEST PAIN 03/15/25 23:30 Morphine Sulfate 2 mg Q30M PRN IV FOR CHEST PAIN 03/15/25 23:30 Review of Systems Constitutional: No symptom reported Ears, Nose, & Throat: No symptom reported Eyes: No symptom reported Neurological: No symptoms reported Pulmonary/Respiratory: No symptoms reported Cardiovascular: Chest pain Gastrointestinal: No symptom reported Genitourinary: No symptom reported Musculoskeletal: No symptom reported Skin: No symptom reported Psychiatric: No symptom reported Endocrine: No symptom reported Hematologic/Lymphatic: No symptom reported Vital Signs Vital Signs Date Time Temp Pulse Resp B/P (MAP) Pulse Ox O2 Delivery O2 Flow Rate FiO2 03/16/25 13:30 98.4 62 17 118/52 (74) 95 98.4 03/16/25 08:00 Room Air* 0 21 Physical Exam General Appearance: Cooperative. Morbidly obese Pulmonary/Respiratory: Clear, bilateral breaths sounds. Cardiovascular/Chest: Regular rate and rhythm. Peripheral Pulses: 2+ Radial (R). 2+ Radial (L). 2+ Pedal (R). 2+ Pedal (L) Abdominal Exam: Normal bowel sounds. Ankle Exam: Negative ankle edema Lower extremities: Negative lower extremity edema Neuro/Mental Status: A/OX4, coherent. Thoughts/Psych: Normal thought pattern. Appropriate mood and affect. Good judgment and insight. Appearance: No acute distress. Skin Exam: Normal inspection. Normal color. Warm and dry. Labs/Diagnostic Data Labs Test 03/16/25 11:46 03/16/25 05:23 03/15/25 18:49 03/15/25 16:14 Range/Units POC Glucose 144 H 70-106 mg/dl White Blood Count 5.5 4.4-10.8 10^3/uL Red Blood Count 4.36 4.0-5.20 10^6/uL Hemoglobin 13.6 12.2-16.2 g/dL Hematocrit 40.0 36.0-46.0 % Mean Corpuscular Volume 91.7 80.0-100.0 fL Mean Corpuscular Hemoglobin 31.1 28.0-32.0 pg Mean Corpuscular Hemoglobin Concent 34.0 32.0-36.0 g/dL Red Cell Distribution Width 13.6 11.8-14.3 % Platelet Count 220 140-450 10^3/uL Mean Platelet Volume 9.4 6.9-10.8 fL Neutrophils (%) (Auto) 38.1 37.0-80.0 % Lymphocytes (%) (Auto) 48.6 10.0-50.0 % Monocytes (%) (Auto) 8.9 0.0-12.0 % Eosinophils (%) (Auto) 3.2 0.0-7.0 % Basophils (%) (Auto) 1.2 0.0-2.0 % Neutrophils # (Auto) 2.1 1.6-8.6 10 ^3/uL Lymphocytes # (Auto) 2.7 0.4-5.4 10 ^3/uL Monocytes # (Auto) 0.5 0-1.3 10 ^3/uL Eosinophils # (Auto) 0.2 0-0.8 10 ^3/uL Basophils # (Auto) 0.1 0-0.2 10 ^3/uL Nucleated Red Blood Cells 0.1 % Sodium Level 142 136-145 mmol/L Potassium Level 3.8 3.5-5.1 mmol/L Chloride Level 110 H 98-107 mmol/L Carbon Dioxide Level 25 20-31 mmol/L Anion Gap 7 5-15 Blood Urea Nitrogen 16 9-23 mg/dL Creatinine 0.73 0.550-1.02 mg/dL Glomerular Filtration Rate Calc 92 >90 mL/min BUN/Creatinine Ratio 21.9 H 10.0-20.0 Serum Glucose 221 H 74-106 mg/dL Calcium Level 10.6 H 8.7-10.4 mg/dL Total Bilirubin 0.4 0.2-1.0 mg/dL Aspartate Amino Transferase (AST) 23 13-40 U/L Alanine Aminotransferase (ALT) 31 7-40 U/L Alkaline Phosphatase 87 46-116 U/L Total Protein 7.0 5.7-8.2 g/dL Albumin 4.3 3.2-4.8 g/dL Triglycerides Level 143 < 150 mg/dL Cholesterol Level 171 < 200 mg/dL LDL Cholesterol 99 < 100 mg/dL HDL Cholesterol 57 40-59 mg/dL Thyroid Stimulating Hormone (TSH) 1.35 0.55-4.78 uIU/mL Troponin I High Sensitivity 5 </=34 ng/L Urine Color Light-yellow Yellow Urine Clarity Clear Clear Urine pH 6.0 5.0-9.0 Urine Specific [place] 1.027 1.001-1.035 Urine Protein Negative Negative Urine Ketones Negative Negative Urine Blood Negative Negative /uL Urine Nitrite Negative Negative Urine Bilirubin Negative Negative Urine Urobilinogen Normal Negative mg/dL Urine Leukocyte Esterase Negative Negative /uL Urine RBC 1 0 - 4 /hpf Urine Microscopic WBC 2 0-5 /HPF Urine Squamous Epithelial Cells Few <5 /hpf Urine Bacteria None seen None Seen /hpf Urine Glucose 4+ H Normal mg/dL Assessment Chest pain, ruled out coronary ischemia Hypertension Dyslipidemia Asthma Type 2 diabetes mellitus Thyroid disease Morbid obesity Plan/Recommendation We will continue with the following plan/recommendations (Dr. Merritt): Case discussed with . We will proceed with obtaining a transthoracic echocardiogram to evaluate cardiac function. The patient recently underwent an outpatient nuclear stress test on 03/14/2025 with her primary salesperson corsets . Results reviewed with and per are negative for ischemia. In the setting of an unremarkable transthoracic echocardiogram, there is no further inpatient cardiac workup indicated at this time. Patient to follow up with primary salesperson corsets in the outpatient setting post discharge. Thank you for allowing us to care for this patient. Please call with any questions or concerns. Critical care time spent: 44 minutes This medical document was created using an electronic medical record system with voice recognition software and computerized dictation system. Although this document has been carefully reviewed, there might still be some phonetic and t ypographical errors. Occasional wrong-word or ``sound-alike substitutions may have occurred due to the inherent limitations of voice recognition software. These areas are purely typographical due to imperfections of the software programs and do not reflect any compromise in the patient's medical care. Please read the chart carefully and recognize, using context, where these howard bstitutions have occurred. Plan discussed with: Patient NYHA Physical activity limitations: NA Date of Service: Mar 16, 2025 Billing Provider: JEREMIAH RODRIGUEZ Cardiology Common Codes: [id number] INP/OBS CARE (High) Cardiology Consultation Codes: [id number] CONSULT <45MIN JEREMIAH RODRIGUEZ Mar 16, 2025 15:25
[2025-03-17 01:00] VITALS: BP_SYST 117; BP_SYST 127; BP_DIAS 71; BP_DIAS 78; PULSE 60; PULSE 78; RESP 16; TEMP 97.6; TEMP 98.5; O2SAT 97; O2SAT 99
[2025-03-17 05:00] VITALS: BP 101/62; PULSE 60; RESP 15; TEMP 97.9; O2SAT 99
[2025-03-17 08:00] VITALS: PULSE 63; PULSE 69; RESP 18; O2SAT 97
[2025-03-17 08:50] VITALS: BP 122/70; PULSE 63; RESP 18; TEMP 97.4; O2SAT 97
--- NOTE | 2025-03-17 09:48 | DVHSR ---
APPROVED REPORT EXAM: Two-dimensional and M-mode echocardiogram with Doppler and color Doppler. Blood Pressure: 109/54 mmHg INDICATION Evaluate Cardiac Function RISK FACTORS Obesity: Height: 4' 8", Weight: 165 DIMENSIONS LVDd3.6 (3.8-5.7cm)LA (2D)3.3 (1.9-4.0cm)Aortic Root2.7 (2.0-3.7cm) LVDs2.5 (2.5-4.0cm)LA (MM) (1.9-4.0cm)Aortic Cusp Exc1.4 (1.5-2.0cm) EF (%) 58.0 (55-70%)Rt. Atrium3.2 (1.9-4.0cm)Asc. Aorta cm IVSd1.0 (0.7-1.1cm)RV (D) (1.8-2.4cm) PWd0.9 (0.7-1.1cm) Mitral Valve MitralMitral Stenosis E wave1.00m/sMV Mean GR.mmHg A wave0.90m/sMV Peak GR.mmHg E/A ratio1.12D MVAcm2 Aortic Valve Aortic ValveAortic Stenosis V10.90m/Ciro Mean GR.5mmHg V21.60m/Ciro Peak GR.11mmHg LVOT Diameter1.9 (1.8-2.4cm)Doppler AVA1.59cm2 AI P 1/2 Vbtg330.06ms Pulmonic Valve V20.50m/s Tricuspid Valve TR Velocity2.20m/s [id number] Other Information Quality : Technically LimitedRhythm : Technically limited study due to body habitus. Conclusion lvef 55% by visual estimate RVnormal function normal atria no severe valve abnormalities noted limtited quality study
[2025-03-17 11:59] LABS: Hepatitis B Surface Antigen Negative (Negative); Hepatitis C Antibody Negative (Negative)
--- NOTE | 2025-03-17 12:28 | DVHPN2 ---
Reviewed: Care Plan, H&P, Labs, Medications, Previous Orders, Radiology Changes from previous H/P or p: No Changes Eyes: No Pain, No Vision change, No Conjunctivae inflammation, No Eyelid inflammation, No Other, No Redness ENT: No Ear pain, No Ear discharge, No Nose pain, No Nose discharge, No Nose congestion, No Mouth pain, No Mouth swelling, No Throat pain, No Throat swelling, No Other Cardiovascular: Chest Pain; No Palpitations, No Orthopnea, No Paroxysmal Noc. Dyspnea, No Edema, No Lt Headedness, No Other Respiratory: No Cough, No Dry, No Shortness of breath, No SOB with excertion, No Wheezing, No Hemoptysis, No Pleuritic Pain, No Sputum, No Other Gastrointestinal: No Nausea, No Vomiting, No Abdominal Pain, No Diarrhea, No Constipation, No Melena, No Hematochezia, No Other Genitourinary: No Dysuria, No Frequency, No Incontinence, No Hematuria, No Retention, No Other Musculoskeletal: No other, No neck pain, No shoulder pain, No arm pain, No back pain, No hand pain, No leg pain, No foot pain Skin: No Rash, No Lesions, No Jaundice, No Bruising, No Other Objective Vitals Vital Signs Date Time Temp Pulse Resp B/P (MAP) Pulse Ox O2 Delivery O2 Flow Rate FiO2 03/17/25 08:50 97.4 63 18 122/70 (87) 97 97.4 03/17/25 08:00 Room Air* 0 21 Intake/Output Intake and Output 03/17/25 07:00 Intake Total 2700 ml Output Total 350 ml Balance 2350 ml Intake Oral 1740 ml IV Total 960 ml Output Urine Total 350 ml # Voids 6 # Bowel Movements 1 Medications Current Medications Medications Dose Ordered Sig/Home Route Start Time Stop Time Status Last Admin Dose Admin Atorvastatin Calcium 10 mg HS PO 03/15/25 22:00 03/16/25 21:29 10 MG Aspirin 81 mg DAILY PO 03/16/25 10:00 03/17/25 09:12 81 MG Hydralazine HCl 10 mg Q6HP PRN IV 03/15/25 21:45 Levothyroxine Sodium 50 mcg QAM@0600 PO 03/16/25 06:00 03/17/25 06:00 50 MCG Diagnostic Test (Pha) 1 strip ACHS 03/15/25 22:00 03/17/25 11:23 1 STRIP Insulin Human Regular HS SC 03/15/25 22:00 03/16/25 21:42 4 UNITS Insulin Human Regular AC SC 03/16/25 07:00 03/17/25 11:29 3 UNITS Dextrose 50 ml UD PRN IV 03/15/25 21:45 Sodium Chloride 1,000 ml @ 60 mls/hr [id number] IV 03/15/25 21:45 03/17/25 06:03 60 MLS/HR Acetaminophen/ Hydrocodone Bitart 1 tab Q4HP PRN PO 03/15/25 21:45 Ondansetron HCl 4 mg Q4HP PRN IV 03/15/25 21:45 Docusate Sodium 100 mg BIDPRN PRN PO 03/15/25 21:45 Acetaminophen 650 mg Q6HP PRN PO 03/15/25 21:45 03/16/25 02:04 650 MG Nitroglycerin 0.4 mg Q5MINP PRN SL 03/15/25 23:30 Morphine Sulfate 2 mg Q30M PRN IV 03/15/25 23:30 Laboratory Results Laboratory Tests 03/16/25 05:23 Urinalysis Test 03/15/25 16:14 Urine Color Light-yellow (Yellow) Urine Clarity Clear (Clear) Urine pH 6.0 (5.0-9.0) Urine Specific [place] 1.027 (1.001-1.035) Urine Protein Negative (Negative) Urine Ketones Negative (Negative) Urine Blood Negative /uL (Negative) Urine Nitrite Negative (Negative) Urine Bilirubin Negative (Negative) Urine Urobilinogen Normal mg/dL (Negative) Urine Leukocyte Esterase Negative /uL (Negative) Urine RBC 1 /hpf (0 - 4) Urine Microscopic WBC 2 /HPF (0-5) Urine Squamous Epithelial Cells Few /hpf (<5) Urine Bacteria None seen /hpf (None Seen) Urine Glucose 4+ mg/dL (Normal) H Labs and/or images reviewed: Labs reviewed by me, Image(s) reviewed by me Assessment/Plan Assessment/Plan Acute chest pain rule out coronary artery disease: Treatment per ACS protocol, cardiology consult for Dr. Merritt appreciated, Cardiolite stress test negative, ejection fraction 55 % cleared for discharge by Dr. Merritt Uncontrolled diabetes: Insulin sliding scale Hypertension Hypercholesterolemia History of [place] Hypothyroidism Asthma Time spent 65 minutes Condition guarded Advanced care planning time 20 minutes Patient is full code Patient's daughter Zeenat (POWER REGULATOR [facility]) [phone] at bedside and tells me that the patient has had a Cardiolite stress test on Monday by Dr. Merritt in his office. Plan discussed with: Patient My Orders Orders - MIHIR GERONIMO MD Procedure Category Date Status Time * Cardiology Consult CONS 03/16/25 Transmitted 12:33 Date of Service: Mar 17, 2025 Billing Provider: MIHIR GERONIMO MD Common Visit Codes: [id number] INP/OBS CARE(HIGH) MIHIR GERONIMO MD Mar 17, 2025 12:28
--- NOTE | 2025-03-17 12:32 | DVHDS2 ---
Discharge Summary Date of Admission March 15, 2025 at 23:17 Date of Discharge: Mar 17, 2025 Admitting Diagnosis Chest pain Wounds: None Labs/Diagnostic Data: Laboratory Results Test 03/17/25 11:21 03/16/25 05:23 03/15/25 18:49 03/15/25 16:14 POC Glucose 192 mg/dl (70-106) White Blood Count 5.5 10^3/uL (4.4-10.8) Red Blood Count 4.36 10^6/uL (4.0-5.20) Hemoglobin 13.6 g/dL (12.2-16.2) Hematocrit 40.0 % (36.0-46.0) Mean Corpuscular Volume 91.7 fL (80.0-100.0) Mean Corpuscular Hemoglobin 31.1 pg (28.0-32.0) Mean Corpuscular Hemoglobin Concent 34.0 g/dL (32.0-36.0) Red Cell Distribution Width 13.6 % (11.8-14.3) Platelet Count 220 10^3/uL (140-450) Mean Platelet Volume 9.4 fL (6.9-10.8) Neutrophils (%) (Auto) 38.1 % (37.0-80.0) Lymphocytes (%) (Auto) 48.6 % (10.0-50.0) Monocytes (%) (Auto) 8.9 % (0.0-12.0) Eosinophils (%) (Auto) 3.2 % (0.0-7.0) Basophils (%) (Auto) 1.2 % (0.0-2.0) Neutrophils # (Auto) 2.1 10 ^3/uL (1.6-8.6) Lymphocytes # (Auto) 2.7 10 ^3/uL (0.4-5.4) Monocytes # (Auto) 0.5 10 ^3/uL (0-1.3) Eosinophils # (Auto) 0.2 10 ^3/uL (0-0.8) Basophils # (Auto) 0.1 10 ^3/uL (0-0.2) Nucleated Red Blood Cells 0.1 % Sodium Level 142 mmol/L (136-145) Potassium Level 3.8 mmol/L (3.5-5.1) Chloride Level 110 mmol/L (98-107) Carbon Dioxide Level 25 mmol/L (20-31) Anion Gap 7 (5-15) Blood Urea Nitrogen 16 mg/dL (9-23) Creatinine 0.73 mg/dL (0.550-1.02) Glomerular Filtration Rate Calc 92 mL/min (>90) BUN/Creatinine Ratio 21.9 (10.0-20.0) Serum Glucose 221 mg/dL (74-106) Calcium Level 10.6 mg/dL (8.7-10.4) Total Bilirubin 0.4 mg/dL (0.2-1.0) Aspartate Amino Transferase (AST) 23 U/L (13-40) Alanine Aminotransferase (ALT) 31 U/L (7-40) Alkaline Phosphatase 87 U/L (46-116) Total Protein 7.0 g/dL (5.7-8.2) Albumin 4.3 g/dL (3.2-4.8) Triglycerides Level 143 mg/dL (< 150) Cholesterol Level 171 mg/dL (< 200) LDL Cholesterol 99 mg/dL (< 100) HDL Cholesterol 57 mg/dL (40-59) Thyroid Stimulating Hormone (TSH) 1.35 uIU/mL (0.55-4.78) Hepatitis B Surface Antigen Negative (Negative) Hepatitis C Antibody Negative (Negative) Troponin I High Sensitivity 5 ng/L (</=34) Urine Color Light-yellow (Yellow) Urine Clarity Clear (Clear) Urine pH 6.0 (5.0-9.0) Urine Specific [place] 1.027 (1.001-1.035) Urine Protein Negative (Negative) Urine Ketones Negative (Negative) Urine Blood Negative /uL (Negative) Urine Nitrite Negative (Negative) Urine Bilirubin Negative (Negative) Urine Urobilinogen Normal mg/dL (Negative) Urine Leukocyte Esterase Negative /uL (Negative) Urine RBC 1 /hpf (0 - 4) Urine Microscopic WBC 2 /HPF (0-5) Urine Squamous Epithelial Cells Few /hpf (<5) Urine Bacteria None seen /hpf (None Seen) Urine Glucose 4+ mg/dL (Normal) Other Laboratory Tests 03/16/25 05:23 Brief Hx & Hospital Course: 64-year-old female with a history of hypertension hypercholesterolemia hypothyroidism asthma [place] diabetes came in for chest pain. Troponin negative x3 treated per ACS protocol patient had Cardiolite stress test by Dr. Merritt in his office and negative. Echo 55 percent ejection fraction patient asymptomatic with a stable vital signs of the time of discharge. Cleared for discharge by Dr. Merritt . patient will follow up with him in two weeks. Consults/Reason for consult Cardiology Dr. Merritt Operations or Procedures Echocardiogram Condition at Discharge: Fair Final Diagnosis/Problems List Acute chest pain rule out coronary artery disease: Treatment per ACS protocol, cardiology consult for Dr. Merritt appreciated, Cardiolite stress test negative, ejection fraction 55 % cleared for discharge by Dr. Merritt Uncontrolled diabetes: Insulin sliding scale Hypertension Hypercholesterolemia History of [place] Hypothyroidism Asthma Discharge Disposition: Home Discharge Instruct/Medications Diet: Cardiac 2g Na,low cholest Activity: Light activity Follow Up/Referral: Follow up with the Cardiology Dr. Merritt in two weeks Resume all previous home medications Medications: none 36 (Time taken for discharge summary 36 minutes) Discharge Statement: "Patient was advised to return to the ER or call 911 if any headaches, dizziness, shortness of breath, chest pain, abdominal pain, bleeding, fevers, or worsening of medical condition. Patient was counseled about treatment plan, medications, possible side effects, patientverbalized understanding. All questions were answered to the best of my ability. This discharge took greater then 30 minutes in planning, reviewing documentation, counseling the patient, and discussing with other team members." ASSESSMENT ASSESSMENT Hospital Course Uneventful Assessment Acute chest pain rule out coronary artery disease: Treatment per ACS protocol, cardiology consult for Dr. Merritt appreciated, Cardiolite stress test negative, ejection fraction 55 % cleared for discharge by Dr. Merritt Uncontrolled diabetes: Insulin sliding scale Hypertension Hypercholesterolemia History of [place] Hypothyroidism Asthma Date of Service: Mar 17, 2025 Billing Provider: MIHIR GERONIMO MD Common Visit Codes: 25122-BOD/OBS DISCH DAY >30min MIHIR GERONIMO MD Mar 17, 2025 12:32
[2025-03-17 13:00] VITALS: BP 117/71; PULSE 56; RESP 18; TEMP 96.4; O2SAT 98
[2025-03-17 17:15] VITALS: BP 121/71; PULSE 55; RESP 17; TEMP 97.1; O2SAT 97
== END 2025-03-17 17:10 | disposition home or self-care (01) | DRG 198 ==
LOC: ER 15:41 → OVERFLOW 23:17 → TELE-WESTW 23:18
PROVIDERS: ADMIT Family Medicine; ATTEND Family Medicine
DX: I24.9 Acute ischemic heart disease, unspecified (principal); N17.0 Acute kidney failure with tubular necrosis; I25.10 Atherosclerotic heart disease of native coronary artery without angina pectoris; E03.9 Hypothyroidism, unspecified; E11.65 Type 2 diabetes mellitus with hyperglycemia; E66.01 Morbid (severe) obesity due to excess calories; I10 Essential (primary) hypertension; Z68.37 Body mass index [BMI] 37.0-37.9, adult; I25.2 Old myocardial infarction; J45.909 Unspecified asthma, uncomplicated; E78.00 Pure hypercholesterolemia, unspecified; Z81.8 Family history of other mental and behavioral disorders; Z98.51 Tubal ligation status; Z79.84 Long term (current) use of oral hypoglycemic drugs
CPT/HCPCS: 36415; 71045; 80048; 80053; 80061; 81001; 82962; 84443; 84484; 85025; 86803; 87340; 93005; 93306; 99291; G0378; J1815